=== PATIENT | male | born 1960 | race Caucasian/White ===

== ENCOUNTER 2023-04-07 13:06 | Emergency (ER) | payer BC ==
[~2023-04-07] VITALS: Ht 175.3 cm; Wt 99.8 kg
[2023-04-07 13:26] VITALS: BP 173/103; PULSE 68; RESP 20; TEMP 98; O2SAT 97
[2023-04-07 13:57] VITALS: O2SAT 98
[2023-04-07] MEDS ORDERED: methocarbamoL 500 MG TAB PO ONE (14:00)
[2023-04-07] MEDS ORDERED: KETOROLAC 30 MG/ML VIAL IM ONE (14:00)
[2023-04-07] MEDS ORDERED: LIDOCAINE 5% 1 EA PATCH TP ONE (14:00)
--- NOTE | 2023-04-07 14:00 | NUR ---
PATIENT PRESENTS TO ED WITH LEFT LOWER BACK THAT RADIATES THROUGH LEFT LEG TO LEFT FOOT. PT STATES HE HAS HAD THIS PAIN BEFORE BUT NEVER HAS THE PAIN RADIATED TO HIS FOOT. PT HAS A HISTORY OF [place]. DENIES N/V/D; SKIN IS PINK/WARM/DRY; AAOX4 WITH UNSTEADY GAIT; LUNGS CLEAR BL; HR EVEN AND REGULAR; PT DENIES ANY FEVER, CP, SOB, OR COUGH AT THIS TIME; PATIENT STATES PAIN OF 10/10 AT THIS TIME; VSS; PATIENT POSITIONED FOR COMFORT; HOB ELEVATED; BEDRAILS UP X2; BED DOWN. ER MD MADE AWARE OF PT STATUS. CALL LIGHT WITH IN REACH.
--- NOTE | 2023-04-07 14:20 | NUR ---
PT HAS BEEN MEDICATED PER PROVIDERDS ORDERS.
--- NOTE | 2023-04-07 14:20 | NUR ---
PT WAS TAKEN TO CT
--- NOTE | 2023-04-07 15:32 | NUR ---
Patient discharged with v/s stable. Written and verbal after care instructions given and explained. Patient verbalized understanding. Ambulatory with steady gait. All questions addressed prior to discharge. Advised to follow up with PMD.
[2023-04-07 15:33] VITALS: BP 165/95; PULSE 51; RESP 15; TEMP 97.4; O2SAT 96
[2023-04-07] MEDS ORDERED: IBUP-2213 PO (15:34)
[2023-04-07] MEDS ORDERED: CYCL-711 PO (15:34)
[2023-04-07] MEDS ORDERED: LID5T TP (15:34)
--- NOTE | 2023-04-07 15:47 | NUR ---
Reassessment of lidocane patch pts pain level was at a ten now the pain scale now at 2
--- NOTE | 2023-04-07 16:01 | NUR ---
The patient's care was reviewed and supervised by NAI CHANDLER RN.
== END 2023-04-07 15:50 | disposition home or self-care (01) ==
LOC: MED 13:06
DX: S39.012A Strain of muscle, fascia and tendon of lower back, initial encounter (principal); M54.32 Sciatica, left side; X58.XXXA Exposure to other specified factors, initial encounter; Y93.89 Activity, other specified; Y92.89 Other specified places as the place of occurrence of the external cause; Y99.8 Other external cause status
CPT/HCPCS: 72131; 96372; 99285; J1885